=== PATIENT | female | born 1945 | race Hispanic/Latino ===

== ENCOUNTER 2021-06-18 10:47 | Emergency (ER) | payer MEDICARE ==
[~2021-06-18] VITALS: Ht 157.5 cm; Wt 89.8 kg
[~2021-06-18 10:47] MED LIST: B-COMPLEX PLUS1 EACH PO; BUSPIRONE HCL5 MG PO; CALCIUM CITRAT1 EA10 PO; ETODOLAC400 MG PO; FISH OIL 1,0001 EAC2 PO; LISINOPRIL-HCT1 EAC2 PO; PRAVASTATIN SOD20 MG PO; VITAMIN C500 MG PO; VITAMIN D32000 UNIT PEG
[2021-06-18] MEDS ORDERED: KETOROLAC TROMETHAMINE 30 MG/ML VIAL IM STA (11:48)
== END 2021-06-18 12:10 | disposition home or self-care (01) ==
LOC: FSED 10:51
DX: M25.562 Pain in left knee (principal)
CPT/HCPCS: 73562; 99282; J1885

== ENCOUNTER 2021-07-03 10:44 | Emergency (ER) | payer MEDICARE ==
[~2021-07-03] VITALS: Ht 157.5 cm; Wt 89.4 kg
[2021-07-03] MEDS ORDERED: NEURONTIN300 MG PO (12:19)
[2021-07-03 12:27] VITALS: BP 162/67
== END 2021-07-03 12:38 | disposition home or self-care (01) ==
LOC: FSED 10:57
DX: R07.9 Chest pain, unspecified (principal); I10 Essential (primary) hypertension; E78.5 Hyperlipidemia, unspecified; M71.20 Synovial cyst of popliteal space [Baker], unspecified knee; Z88.6 Allergy status to analgesic agent; Z79.899 Other long term (current) drug therapy
CPT/HCPCS: 71046; 80053; 82553; 84484; 85025; 99283